=== PATIENT | female | born 1995 | race Caucasian/White ===

== ENCOUNTER 2022-12-28 23:48 | Emergency (ER) | payer BC ==
[2022-12-29 00:07] VITALS: BP 120/79; PULSE 94; RESP 18; TEMP 98.3; BMI 31.4
== END 2022-12-29 00:55 | disposition home or self-care (01) ==
LOC: JER 23:48
DX: T15.92XA Foreign body on external eye, part unspecified, left eye, initial encounter (principal); H57.89 Other specified disorders of eye and adnexa
CPT/HCPCS: 99282-25

== ENCOUNTER 2024-03-31 04:33 | Emergency (ER) | payer BC ==
[2024-03-31 04:44] VITALS: BP 124/83; PULSE 100; RESP 20; TEMP 97.5; BMI 30.9
[2024-03-31 06:07] LABS: EPI CELLS >36 /uL (0-25.1); HYALINE CASTS 17 /uL (0-3.1); PH,URINE 5.5 (5.0-8.0); URINE APPEARANCE TURBID; URINE BACTERIA >9,000 /uL (0-1359); URINE BILIRUBIN NEGATIVE (NEGATIVE); URINE COLOR ORANGE; URINE GLUCOSE (UA) NEGATIVE (NEGATIVE); URINE KETONE NEGATIVE (NEGATIVE); URINE LEUK ESTERASE 3+ (NEGATIVE); URINE NITRITE POSITIVE (NEGATIVE); URINE PROTEIN 3+ (NEGATIVE); URINE WBC 19297 /uL (0-25.8)
[2024-03-31 09:16] LABS: URINE RBC 17053 /uL (0-23.9); YEAST NONE SEEN (NEGATIVE)
== END 2024-03-31 06:25 | disposition home or self-care (01) ==
LOC: JER 04:33
DX: O23.40 Unspecified infection of urinary tract in pregnancy, unspecified trimester (principal); Z3A.00 Weeks of gestation of pregnancy not specified; O26.899 Other specified pregnancy related conditions, unspecified trimester; R11.0 Nausea
CPT/HCPCS: 81003; 84703; 87086; 87186; 99283-25